=== PATIENT | male | born 1965 ===

== ENCOUNTER 2016-11-27 06:16 | Day surgery (SDC) | payer MEDICARE ==
[2016-11-11 11:02] VITALS: BMI 39.6
[2016-11-27 07:04] LABS: BASO # 0.07 K/mm3 (0.0-2.0); BASO % 0.8 % (0.0-3.0); EOS # 0.6 (0.0-0.7); EOS % 7.1 % (1.5-5.0); GRAN # 4.54 (1.4-6.5); GRAN % 52.9 % (50.0-68.0); HEMOGLOBIN 14.5 g/dL (14.0-18.0); LYMPH # 2.6 (1.2-3.4); LYMPH % 30.8 % (22.0-35.0); MEAN CELL VOLUME 83.8 fl (80.0-105.0); MEAN CORPUSCULAR HEMOGLOBIN 28.3 pg (25.0-35.0); MEAN CORPUSCULAR HGB CONC 33.7 g/dl (31.0-37.0); MEAN PLATELET VOLUME 8.7 fl (7.0-11.0); MONO # 0.7 (0.1-0.6); MONO % 8.4 % (1.0-6.0); PLATELET COUNT 272 10^3/uL (120.0-450.0); RBC 5.13 10^6/uL (3.5-6.1); RED CELL DISTRIBUTION WIDTH 13.9 % (11.5-14.5); WHITE BLOOD COUNT 8.6 10^3/ul (4.5-11.0)
[2016-11-27 07:11] LABS: BLOOD UREA NITROGEN 19 mg/dL (7-21); CALCIUM 9.3 mg/dL (8.4-10.5); GFR AFRICAN-AMERICAN > 60; GFR NON-AFRICAN AMERICAN > 60
[2016-11-27] MEDS ORDERED: Morphine 1 mg/ml preservative-free Inj(Duramorph) ONE (07:29)
[2016-11-27] MEDS ORDERED: Bupivacaine 0.5% Inj(30mL) ONE ×2 (07:30→10:06)
[2016-11-27] MEDS ORDERED: Lidocaine 1% w Epi 1:100,000 Inj ONE (07:34)
[2016-11-27] MEDS ORDERED: Propofol 10 mg/ml Inj (20 ML) ONE ×2 (07:41→10:15)
[2016-11-27] MEDS ORDERED: Midazolam 2 MG/2 ML VIAL ONE (07:42)
[2016-11-27] MEDS ORDERED: Rocuronium 10 mg/ml (5 ml) ONE (07:42)
[2016-11-27] MEDS ORDERED: ePHEDrine 50 mg/ml Inj ONE (09:22)
--- NOTE | 2016-11-27 10:39 | PCM.SURG1 ---
Surgeon's Initial Post Op Note - Surgeon's Notes Surgeon: Joseph Camara MD Mutuel Machine Operator: Britney Almanzar PA_C Type of Anesthesia: General Endo Anesthesia Administered By: Dr. Lima Pre-Operative Diagnosis: Right shoulder rotator cuff tear, labral tear, AC joint DJD Operative Findings: same Post-Operative Diagnosis: same Operation Performed: 1. RIght shoulder arthroscopic rotator cuff repair. 2. Right shoulder arthroscopic labral repair. 3. Subacromial decompression arthroscopic Specimen/Specimens Removed: none Estimated Blood Loss: EBL {In ML}: 5 Blood Products Given: N/A Drains Used: No Drains Post-Op Condition: Fair Date of Surgery/Procedure: 11/27/16 Time of Surgery/Procedure: 10:39
[2016-11-27] MEDS ORDERED: Oxycodone/Acetaminophen 5/325 mg Tab PO PRN (10:41)
[2016-11-27] MEDS ORDERED: HYDROmorphone 0.5 mg/0.5 ml ISec IVP PRN (11:25)
[2016-11-27] MEDS ORDERED: Lactated Ringer's 1,000 ML IV SCH (11:25)
--- NOTE | 2016-11-27 11:29 | PCM.ANESB1 ---
Interscalene Block - Brachial Plexus Date of Procedure: 11/27/16 Anesthesiologist: ck Pre-Procedure Diagnosis: right rotator cuff tear, right shoulder joint internal derangement Post-Procedure Diagnosis: same Procedure Performed: Interscalene Block of Brachial Plexus Right - Procedure Interscalene Block of Brachial Plexus: This procedure was explained to the patient that it is for post-operative pain management. Consent was obtained after a thorough discussion with the patient regarding the benefits and possible complications of local anesthetic block of the Brachial Plexus at the Interscalene area. The patient was brought to the Operating Room and standard monitors were applied. Time out was held with the circulating nurse to confirm the correct surgery and appropriate block. After completion of shoulder surgery, the patient's head was gently rotated away from the ___right___operative shoulder and the anterior scalene groove was carefully palpated. The ultrasound transducer was then applied to the skin in the transverse plane and the brachial plexus was visualized lateral to the carotid artery and in between the anterior and middle scalene muscles. After identification,the anterior lateral portion of the neck was prepped with Betadine solution three times At this point, a # 22 gauge Stimuplex 2 inches insulated needle was inserted into the interscalene groove and directed in a caudal and midline direction. The needle was inserted lateral to the ultrasound transducer in-plane towards the brachial plexus in a [id number] direction. Needle advancement was performed carefully under direct ultrasound visualization. After repeated negative aspiration,___25__cc of , 0.5% bupivicaine was injected. Under ultrasound guidance the local anesthetics were observed surrounding the roots of the brachial plexus. The needle was removed intact and sterile dressing was applied. The patient had stable vital signs, was extubated and transfered to pacu, where vitals signs were monitored to ensure patient remained stable
[2016-11-27 12:23] VITALS: BP 127/72; PULSE 72; RESP 20; TEMP 97.6; O2SAT 93
[2016-11-27] MEDS ORDERED: Oxycodone/Acetaminophen 5/325 mg Tab ONE (12:57)
[2016-11-27] MEDS ORDERED: Oxycodone/Acetaminophen 5/325 mg Tab PO ONE (12:59)
--- NOTE | 2016-11-27 21:56 | OP ---
PROCEDURE DATE: 11/27/2016 PREOPERATIVE DIAGNOSIS: Right shoulder rotator cuff tear and labral tear and impingement. POSTOPERATIVE DIAGNOSIS: Right shoulder rotator cuff tear and labral tear impingement. PROCEDURE: Right shoulder arthroscopy with arthroscopic cuff repair, arthroscopic labral repair, and subacromial decompression. SURGEON: Dr. Camara. ENVELOPE MAKER: Dr. Camara was assisted by El Crane, the physician assistant professor of biology. Ms. Crane was scrubbed and present throughout the case and assisted in patient positioning, holding the camera during suture passing as well as wound closure. ANESTHESIA: General. COMPLICATIONS: None. ESTIMATED BLOOD LOSS: 5 mL. INDICATIONS FOR PROCEDURE: He is a 51-year-old gentleman who presented with complaints of right shoulder pain. PAST MEDICAL HISTORY: Significant for prior right shoulder arthroscopy with rotator cuff tear approximately 5 years ago. The patient recently began complaining of pain with overhead activities and pain with any heavy lifting. MRI examination was consistent with a full thickness tear of the supraspinatus and extensive tearing of the glenoid labrum. RECOMMENDATIONS: Right shoulder arthroscopy. The risk, benefits, and alternatives of the procedure were discussed with the patient and informed consent was obtained. PROCEDURE: After the surgical site was identified in the preoperative holding area, the patient was taken to the operating room and placed in supine on the operating table. After administration of general anesthesia, the patient received 3 g of Ancef IV. The patient was positioned in the lateral decubitus position with the right shoulder up towards the ceiling. Care was taken to make sure all bony prominences and nerves are well padded and protected. The right and the left axilla and the right upper shoulder was prepped and draped in the usual sterile fashion. The right upper extremity was placed in the arthroscopic arm brandon with 10 pounds of traction. Bony landmarks were identified about the right shoulder and portal sites were injected with a total of 10 mL of 1% lidocaine with epi. Posterior arthroscopy portal was established and the arthroscope was inserted into the glenohumeral joint. The chondral surface of the glenoid and humeral head were noticed to have some grade I changes. Under direct arthroscopic visualization anterior interval was identified and anterior port was established. The labrum was probed and the patient was noted to have extensive tearing from roughly 3:30 position on the glenoid labrum to approximately 10 o'clock position posteriorly. At his point, a labral repair was performed by passing sutures through the labral tissue and inserting 4 Arthrex anchors into the rim of the glenoid. Once the anchors were firmly seated a bumper was created with a labral tissue bringing the labral tissue back onto the face of glenoid. The labrum was probed and was noted to be stable. Satisfied biceps tendon appeared to be situated in to supraclavicular groove. The subscapularis was noted to be intact and the supraspinatus was noted to have a full thickness tear with approximately 1 to 2 cm of retraction. No loose bodies were appreciated in the axillary recess. At this point, the arthroscope was inserted into the subacromial space with a posterior portal. A lateral port was established and bursectomy was performed, which gave us excellent visualization of the undersurface of the acromion. Shaver was used in a crystal like fashion and acromioplasty was also performed. At this point, the patient was noted to have prior suture from his previous repair floating in the joint and the sutures were removed. The free margin of the cuff tear was debrided using the shaver and the tear configuration was established. At his point, decision was made to do a double row repair by first inserting 2 medial anchors and passing FiberTape through the substance of the tissue and then inserting these sutures in a crisscross fashion into two additional lateral anchors. The tendon was appropriately tensioned and then the anchors were impacted into the footprint, from this securing the tendon tissue back down to its footprint. An additional anterolateral anchor was then passed in a simple fashion to bring down an anterior dog ear. At this point, the cuff was probed and was noted to be stable and firmly secured onto the footprint. At this point, all the instruments removed and all portal sides were closed using interrupted 2-0 Vicryl and 3-0 nylon. Sterile dressing was applied and the patient was transferred supine, awake, and taken to recovery room in stable condition. Noel Camara MD
== END 2016-11-27 15:00 | disposition home or self-care (01) ==
LOC: SDS 06:16
PROVIDERS: ATTEND Orthopaedic Surgery
DX: M75.101 Unspecified rotator cuff tear or rupture of right shoulder, not specified as traumatic (principal); S43.51XA Sprain of right acromioclavicular joint, initial encounter; M19.011 Primary osteoarthritis, right shoulder; I10 Essential (primary) hypertension; J45.909 Unspecified asthma, uncomplicated; E66.9 Obesity, unspecified; Z68.39 Body mass index [BMI] 39.0-39.9, adult
CPT/HCPCS: 29826; 29827; 36415; 80048; 85025; C1713; J0171; J0690; J1170; J2001; J2250; J2405; J2704; J3010; J7120